=== PATIENT | female | born 1985 | race Caucasian/White ===

== ENCOUNTER 2017-11-06 19:50 | Observation (INO) | payer OTHER ==
[~2017-11-06] VITALS: Ht 165.1 cm; Wt 52.2 kg
[2017-11-06 20:53] VITALS: BP 101/55
== END 2017-11-06 23:05 | disposition home or self-care (01) ==
LOC: MLD 19:50
PROVIDERS: ADMIT Obstetrics & Gynecology; ATTEND Obstetrics & Gynecology
DX: O46.92 Antepartum hemorrhage, unspecified, second trimester (principal); Z3A.20 20 weeks gestation of pregnancy
CPT/HCPCS: 76805; 81000; G0378; Q0092